=== PATIENT | female | born 1940 | race African-American/Black ===

== ENCOUNTER 2019-07-04 12:27 | Observation (INO) ==
[2019-07-04] MEDS ORDERED: SODIUM CHLORIDE 0.9% 1,000 ML IV STA (13:27)
[2019-07-04 14:14] LABS: Basophils # 0.1 10*3/uL (0.0-0.2); Basophils % 0.4 % (0.0-0.8); Eosinophils % 0.1 % (0.00-10.9); Hematocrit 50.5 VOL% (35.7-47.0); Hemoglobin 15.7 GM/DL (12.0-16.0); Immature Granulocytes % 0.9 %; Lymphocytes # 1.9 10*3/uL (1.4-4.0); Lymphocytes % 16.7 % (21.3-54.2); Mean Corpuscular HGB Conc 31.1 GM/DL (32-36); Mean Corpuscular Volume 90.7 FL (87-102); Mean Platelet Volume 9.9 FL (9.6-12.0); Neutrophils % 74.9 % (38.7-73.9); Platelet Count 429 T/CUMM (130-400); Red Blood Count 5.57 MC/CUMM (3.8-5.5); Red Cell Distribution Width 11.9 % (9.3-17.3); White Blood Count 11.3 T/CUMM (4-12)
[2019-07-04 15:00] LABS: Albumin 3.3 G/DL (3.4-5.0); Bilirubin,Total 0.6 MG/DL (0.2-1.0); Calcium 9.3 MG/DL (8.5-10.1); Osmolality,Calculated 280.7 MOS/KG (273-304); Thyroid Stimulating Hormone 1.09 uIU/ml (0.358-3.74); Total Protein 8.4 G/DL (6.4-8.3)
[2019-07-04 15:40] LABS: Apearance,Urine CLEAR (Clear); Bacteria,Urine Moderate /HPF (Few); Bilirubin,Urine Negative (Negative); Blood, Urine Negative (Negative); Glucose,Urine (UA) Negative (Negative); Hyaline Casts,Urine 3 /LPF (0-3); Ketones,Urine 20 mg/dL (Negative); Mucus,Urine Occasional /LPF (Occasional); Nitrite,Urine Negative (Negative); Protein,Urine 100 MG/DL; RBC,Urine 1 /HPF (0-4); Squamous Epithelial Cell,Urine Occasional /HPF (0-10); Urine Color Yellow (Yellow); Urine Specific Gravity 1.021 (1.001-1.035); WBC,Urine 1 /HPF (0-6)
[2019-07-04] MEDS ORDERED: DOCUSATE SODIUM 100 MG CAPSULE PO PRN (16:12)
[2019-07-04] MEDS ORDERED: ONDANSETRON 4 MG/2 ML VIAL IV PRN (16:12)
[2019-07-04] MEDS ORDERED: ACETAMINOPHEN 325 MG TABLET PO PRN (16:12)
[2019-07-04] MEDS ORDERED: ASPIRIN CHEW 81 MG TABLET PO ONE (16:18)
[2019-07-04] MEDS ORDERED: ENOXAPARIN 40 MG/0.4 ML SYRINGE SUBCUT SCH (16:30)
[2019-07-04] MEDS: SODIUM CHLORIDE 0.9% 1,000 ML IV SCH (18:00)
[2019-07-04] MEDS ORDERED: hydrALAZINE 20 MG/1 ML VIAL IV PRN (20:20)
[2019-07-04] MEDS ORDERED: INSULIN GLARGINE 100 UNIT/ML SUBCUT SCH (21:00)
[2019-07-04] MEDS ORDERED: SIMVASTATIN 10 MG TABLET PO SCH (21:00)
[2019-07-04] MEDS: CARVEDILOL 6.25 MG TABLET PO SCH (21:30)
[2019-07-04] MEDS: INSULIN REGULAR 100 UNIT/ML SUBCUT SCH (21:30)
[2019-07-04] MEDS: MECLIZINE 25 MG TABLET PO SCH (21:30)
[2019-07-05] MEDS: SODIUM CHLORIDE 0.9% 1,000 ML IV SCH ×2 (00:30→06:10)
[2019-07-05 05:33] LABS: Basophils % 0.3 % (0.0-0.8); Eosinophils % 0.3 % (0.00-10.9); Hemoglobin 14.5 GM/DL (12.0-16.0); Immature Granulocytes % 0.7 %; Immature Granulocytes Absolute 0.07 #; Lymphocytes # 1.8 10*3/uL (1.4-4.0); Lymphocytes % 17.4 % (21.3-54.2); Mean Corpuscular HGB Conc 31.5 GM/DL (32-36); Mean Corpuscular Volume 90.9 FL (87-102); Monocytes % 8.3 % (1.7-12.7); Platelet Count 393 T/CUMM (130-400); Red Blood Count 5.06 MC/CUMM (3.8-5.5); Red Cell Distribution Width 11.9 % (9.3-17.3); White Blood Count 10.2 T/CUMM (4-12)
[2019-07-05 05:50] LABS: Calcium 8.8 MG/DL (8.5-10.1); Osmolality,Calculated 282.1 MOS/KG (273-304); Risk Ratio 3.37; VLDL CHOLESTEROL 16.4 MG/DL
[2019-07-05 05:55] LABS: Hypochromasia 1+; Platelet Estimate Adequate
[2019-07-05] MEDS ORDERED: PANTOPRAZOLE 40 MG TABLET PO SCH (09:00)
[2019-07-05] MEDS ORDERED: CLOPIDOGREL 75 MG TABLET PO SCH (09:00)
[2019-07-05] MEDS: INSULIN REGULAR 100 UNIT/ML SUBCUT SCH ×2 (09:16→12:44)
[2019-07-05] MEDS: MECLIZINE 25 MG TABLET PO SCH ×2 (09:28→14:35)
[2019-07-05] MEDS: CARVEDILOL 6.25 MG TABLET PO SCH (09:28)
[2019-07-05 16:23] VITALS: BP 158/112
[2019-07-05] MEDS ORDERED: amLODIPine 10 MG TABLET PO SCH (16:25)
== END 2019-07-05 16:45 | disposition home health service (06) ==
LOC: EDUNIT# → EDBD → N.EDINP 12:27 → N.ED 12:27 → N.2W 17:01
PROVIDERS: ADMIT Emergency Medicine; ATTEND Emergency Medicine